=== PATIENT | male | born 1995 | race Caucasian/White ===

== ENCOUNTER 2018-01-14 18:16 | Emergency (ER) | payer OTHER ==
[2018-01-14 18:23] VITALS: BP 132/64
--- NOTE | 2018-01-14 18:39 | ER Document Report ---
ED Medical Screen (RME) - General Chief Complaint: Post Surgical Bleeding Stated Complaint: POSSIBLE HEMATOMA Time Seen by Provider: 01/14/18 18:34 Mode of Arrival: Ambulatory Information source: Patient Notes: This is a 22-year-old status post bilateral mastectomy in January 06 2 presents to the emergency room with concerns for hematoma in the left breast. The surgical procedure was performed for esthetics (i.e. no cancer, etc.). He denies any fever, pain. He does state that he drank some alcohol last night and this morning he noticed it with the swelling of the left breast. TRAVEL OUTSIDE OF THE [place] IN LAST 30 DAYS: No - HPI Onset: This morning Onset/Duration: Gradual Quality of pain: No pain Severity: None Pain Level: Denies Associated Symptoms: denies: Chest pain, Shortness of breath Exacerbated by: Denies Relieved by: Denies Similar symptoms previously: No Recently seen / treated by doctor: Yes - Related Data Smoking: Non-smoker Frequency of alcohol use: None Drug Abuse: None Allergies/Adverse Reactions: cefadroxil [From Duricef] Allergy (Verified 01/14/18 18:17) Past Medical History - General Information source: Patient - Social History Cigarette use (# per day): No Chew tobacco use (# tins/day): No Frequency of alcohol use: None Drug Abuse: None Lives with: Spouse/Significant other Family history: None - Medical History Medical History: Negative Renal/ Medical History: Denies: Hx Peritoneal Dialysis Surgical Hx: Other - Bilateral mastectomy Review of Systems - Review of Systems Constitutional: denies: Chills, Fever EENT: No symptoms reported Cardiovascular: No symptoms reported Respiratory: No symptoms reported Gastrointestinal: No symptoms reported Genitourinary: No symptoms reported Male Genitourinary: No symptoms reported Musculoskeletal: See HPI Skin: See HPI Hematologic/Lymphatic: No symptoms reported Neurological/Psychological: No symptoms reported Physical Exam - Vital signs Vitals: Temp Pulse Resp BP Pulse Ox 98.5 F 66 16 132/64 H 99 01/14/18 18:21 01/14/18 18:21 01/14/18 18:21 01/14/18 18:21 01/14/18 18:21 Notes: Physical exam: GENERAL: 22-year-old man, alert and oriented 3, no acute distress HEAD: Atraumatic, normocephalic. EYES: Pupils equal round and reactive to light, extraocular movements intact, sclera anicteric, conjunctiva are normal. ENT: Moist mucous membranes. NECK: Normal range of motion, supple Chest: Status post bilateral mastectomy. The wound sites underneath each nipple look good. The left breast does have a hematoma without any fluctuance, erythema or significant warmth. There is bruising around the pectoral muscle in various stages of healing. There is minimal tenderness over the breast. Right breast wound site is dry and intact without any evidence of erythema, warmth or significant hematoma. EXTREMITIES: Normal range of motion, no pitting or edema. No clubbing or cyanosis. NEUROLOGICAL: Cranial nerves II through XII grossly intact. Normal speech, moving all extremities. PSYCH: Normal mood, normal affect. SKIN: As noted above on chest exam Course - Re-evaluation Re-evalutation: 01/14/18 18:47 Patient is afebrile and shows no evidence of infection. The wound site actually looks good. The hematoma is minimal. Patient is in no distress. I did call the covering physician (dr Vega) at [facility] and discussed the case. He agreed that there is not much more to do except supportive therapy. He is willing to see the patient at 11 AM on Tuesday. I discussed this with the patient and is happy with the plan. - Vital Signs Vital signs: Temp Pulse Resp BP Pulse Ox 98.5 F 66 16 132/64 H 99 01/14/18 18:21 01/14/18 18:21 01/14/18 18:21 01/14/18 18:21 01/14/18 18:21 Doctor's Discharge - Discharge Clinical Impression: Postoperative hematoma Condition: Stable Disposition: HOME, SELF-CARE Additional Instructions: The surgical site looks quite good today. There is a hematoma more on the left. I would not change any of the postoperative instructions at this point. The big issue is just looking for signs of infection: Redness, pus discharge, fever, increased pain. If the hematoma gets larger, sometimes compression will help control it. Otherwise, follow-up with Dr. Wilder as planned. I did speak to Dr. Vega who is covering for Dr. Wilder and you can see Dr. Sosa in the walk-in general surgery clinic on Tuesday at 11 AM if you have any further concerns or if you think it is getting worse.
== END 2018-01-14 18:44 | disposition home or self-care (01) ==
LOC: ER 18:16
DX: L76.32 Postprocedural hematoma of skin and subcutaneous tissue following other procedure (principal); Y83.6 Removal of other organ (partial) (total) as the cause of abnormal reaction of the patient, or of later complication, without mention of misadventure at the time of the procedure; Z88.1 Allergy status to other antibiotic agents
CPT/HCPCS: 99283